=== PATIENT | female | born 1980 | race Caucasian/White ===

== ENCOUNTER 2017-08-30 10:02 | Outpatient (CLI) | payer OTHER | END 2017-08-30 15:23 | disposition home or self-care (01) | LOC: SONOGRAMA 10:02 → MAMO-SONO 10:15 → SONOGRAMA 15:23 | DX: M25.512 Pain in left shoulder (principal) ==

== ENCOUNTER 2020-12-02 06:18 | Day surgery (SDC) | payer OTHER ==
[~2020-12-02 06:18] MED LIST: CYMBALTA PO; [UNRECOGNIZED DRUG - OTHER] PO; [UNRECOGNIZED DRUG - OTHER] PO
== END 2020-12-02 13:54 | disposition home or self-care (01) ==
LOC: CIR.AMB 06:18
PROVIDERS: ATTEND Obstetrics & Gynecology
DX: N93.8 Other specified abnormal uterine and vaginal bleeding (principal); Z20.822 Contact with and (suspected) exposure to COVID-19

== ENCOUNTER 2021-08-14 10:06 | Outpatient (CLI) | payer OTHER | END 2021-08-14 10:49 | disposition home or self-care (01) | LOC: LAB 10:06 | PROVIDERS: ATTEND Internal Medicine Hematology & Oncology | DX: D68.0 Von Willebrand disease (principal) ==

== ENCOUNTER → 2021-08-22 09:11 | Outpatient (CLI) | payer OTHER | END | disposition home or self-care (01) | LOC: NUCLEAR 09:00 | DX: I83.11 Varicose veins of right lower extremity with inflammation (principal) ==

== ENCOUNTER 2021-08-22 11:15 | Outpatient (CLI) | payer OTHER | END 2021-08-22 11:23 | disposition home or self-care (01) | LOC: LAB 11:15 | PROVIDERS: ATTEND Internal Medicine Hematology & Oncology | DX: D68.8 Other specified coagulation defects (principal) ==